=== PATIENT | female | born 1990 | race Caucasian/White ===

== ENCOUNTER 2017-03-26 21:20 | Observation (INO) | payer BC ==
[~2017-03-26] VITALS: Ht 170.2 cm; Wt 64.7 kg
[2017-03-26 21:30] VITALS: RESP 18; O2SAT 100
--- NOTE | 2017-03-26 21:37 | PD ---
HPI Chief Complaint: Cardiac Complaint Time Seen by Provider: 21:31 Travel History International Travel<30 days: No Contact w/Intl Traveler<30days: No Traveled to known affect area: No History of Present Illness HPI 26-year-old female here for evaluation of palpitations and rapid heart rate. The patient reports that she was studying for finals this evening when the symptoms started about 45 minutes ago. She admits to smoking some marijuana tonight. About a week ago she had a similar episode while taking a test. She has not had any fevers, chills, cough, or recent illness. She drank one cup of coffee earlier this morning, otherwise no excessive caffeine use. No recent [id number] medications other than a dose of Excedrin yesterday evening. She denies chest pain, however she states she feels as though her heart is beating through her chest. [facility] Social History Tobacco Use: No Allergies-Medications (Allergen,Severity, Reaction): Coded Allergies: No Known Allergies (Unverified , 03/26/17) Reported Meds & Prescriptions Reported Meds & Active Scripts Active No Active Prescriptions or Reported Medications Review of Systems Except as stated in HPI: all other systems reviewed are Neg Physical Exam Narrative GENERAL: Well-developed, well-nourished, comfortable, no apparent distress. SKIN: Focused skin assessment warm/dry. HEAD: Atraumatic. Normocephalic. EYES: Pupils equal and round. No scleral icterus. No injection or drainage. ENT: No nasal bleeding or discharge. Mucous membranes pink and moist. Bilateral tympanic membrane and external auditory canals are normal. NECK: Trachea midline. No JVD. CARDIOVASCULAR: Tachycardic, rate 130, regular. No murmur. Distal pulses brisk and equal bilaterally. RESPIRATORY: No accessory muscle use. Clear to auscultation. Breath sounds equal bilaterally. GASTROINTESTINAL: Abdomen soft, non-tender, nondistended. MUSCULOSKELETAL: No obvious deformities. No clubbing. No cyanosis. No edema. NEUROLOGICAL: Awake and alert. No obvious cranial nerve deficits. Motor grossly within normal limits. Normal speech. PSYCHIATRIC: Appropriate mood and affect; insight and judgment normal. Data Data Last Documented VS Vital Signs Date Time Temp Pulse Resp B/P (MAP) Pulse Ox O2 Delivery O2 Flow Rate FiO2 03/27/17 00:24 105 18 115/75 (88) 100 Room Air Orders Orders Electrocardiogram (03/26/17:31) Complete Blood Count With Diff (03/26/17:) Comprehensive Metabolic Panel (03/26/17:) Magnesium (Mg) (03/26/17:) Prothrombin Time / Inr (Pt) (03/26/17:31) Act Partial Throm Time (Ptt) (03/26/17:31) Ecg Monitoring (03/26/17:) Iv Access Insert/Monitor (03/26/17:) Oximetry (03/26/17:) Sodium Chloride 0.9% Flush (Ns Flush) (03/26/17 21:45) Sodium Chlor 0.9% 1000 Ml Inj (Ns 1000 M (03/26/17 21:45) Beta Hcg (Quant/Titer) (03/26/17 21:31) Lorazepam (Ativan) (03/26/17 21:45) Free Thyroxine (T4) (03/26/17:) Thyroid Stimulating Hormone (03/26/17:) D-Dimer (03/26/17 22:45) Sodium Chlor 0.9% 1000 Ml Inj (Ns 1000 M (03/26/17 23:00) Ckmb (Isoenzyme) Profile (03/26/17 21:30) Troponin I (03/26/17 21:30) Adenosine Inj (Adenocard Inj) (03/26/17 23:00) Diltiazem Inj (Cardizem Inj) (03/26/17 23:00) Diltiazem Inj (Cardizem Inj) (03/26/17 23:15) CKMB (03/26/17 21:30) CKMB% (03/26/17 21:30) Midazolam Inj (Versed Inj) (03/26/17 23:30) Place In Observation (03/27/17 ) Vital Signs (Adult) Q4H (03/27/17 00:44) Activity Oob With Assistance (03/27/17 00:44) Stage Builder / Telemetry .CONTINUOUS (03/27/17 00:44) Diet Regular Basic (03/27/17 Breakfast) Sodium Chloride 0.9% Flush (Ns Flush) (03/27/17 00:45) Sodium Chloride 0.9% Flush (Ns Flush) (03/27/17 09:00) Acetaminophen (Tylenol) (03/27/17 00:45) Ondansetron Inj (Zofran Inj) (03/27/17 00:45) Naloxone Inj (Narcan Inj) (03/27/17 00:45) Docusate Sodium-Senna (Chrissie-Colace) (03/27/17 09:00) Magnesium Hydroxide Liq (Milk Of Magnesi (03/27/17 00:45) Sennosides (Senokot) (03/27/17 00:45) Bisacodyl Supp (Dulcolax Supp) (03/27/17 00:45) Lactulose Liq (Lactulose Liq) (03/27/17 00:45) Drug Screen, Random Urine (03/27/17 00:53) Admit Order (Ed Use Only) (03/27/17 00:52) Labs Laboratory Tests Test 03/26/17 21:30 White Blood Count 11.4 TH/MM3 Red Blood Count 4.32 MIL/MM3 Hemoglobin 13.7 GM/DL Hematocrit 39.7 % Mean Corpuscular Volume 91.8 FL Mean Corpuscular Hemoglobin 31.7 PG Mean Corpuscular Hemoglobin Concent 34.5 % Red Cell Distribution Width 12.1 % Platelet Count 310 TH/MM3 Mean Platelet Volume 8.8 FL Neutrophils (%) (Auto) 29.6 % Lymphocytes (%) (Auto) 57.7 % Monocytes (%) (Auto) 7.0 % Eosinophils (%) (Auto) 2.3 % Basophils (%) (Auto) 3.4 % Neutrophils # (Auto) 3.4 TH/MM3 Lymphocytes # (Auto) 6.5 TH/MM3 Monocytes # (Auto) 0.8 TH/MM3 Eosinophils # (Auto) 0.3 TH/MM3 Basophils # (Auto) 0.4 TH/MM3 CBC Comment AUTO DIFF Differential Total Cells Counted 100 Neutrophils % (Manual) 45 % Band Neutrophils % 3 % Lymphocytes % 45 % Monocytes % 6 % Eosinophils % 1 % Neutrophils # (Manual) 5.5 TH/MM3 Differential Comment FINAL DIFF MANUAL Platelet Estimate NORMAL Platelet Morphology Comment NORMAL Red Cell Morphology Comment NORMAL Prothrombin Time 11.0 SEC Prothromb Time International Ratio 1.1 RATIO Activated Partial Thromboplast Time 24.4 SEC D-Dimer Quantitative (PE/DVT) LESS THAN 0.19 MG/L FEU Blood Urea Nitrogen 10 MG/DL Creatinine 1.00 MG/DL Random Glucose 215 MG/DL Total Protein 7.4 GM/DL Albumin 4.2 GM/DL Calcium Level 8.3 MG/DL Magnesium Level 1.7 MG/DL Alkaline Phosphatase 76 U/L Aspartate Amino Transf (AST/SGOT) 15 U/L Alanine Aminotransferase (ALT/SGPT) 16 U/L Total Bilirubin 0.7 MG/DL Sodium Level 136 MEQ/L Potassium Level 3.3 MEQ/L Chloride Level 103 MEQ/L Carbon Dioxide Level 21.0 MEQ/L Anion Gap 12 MEQ/L Estimat Glomerular Filtration Rate 68 ML/MIN Total Creatine Kinase 124 U/L Creatine Kinase MB 1.2 NG/ML Troponin I LESS THAN 0.02 NG/ML Free Thyroxine 1.01 NG/DL Thyroid Stimulating Hormone 3rd Gen 2.740 uIU/ML Human Chorionic Gonadotropin, Quant LESS THAN 1 MIU/ML MDM Medical Decision Making Medical Screen Exam Complete: Yes Emergency Medical Condition: Yes Differential Diagnosis Palpitations, SVT, metabolic abnormality, panic attack/anxiety, hyperthyroidism Narrative Course Initial vital signs show heart rate 124, blood pressure 160/86, pulse ox 100% on room air, respiratory rate of 18 breaths per minute. CBC: WBC 11.4, hemoglobin 13.7, hematocrit 39.7, platelets 310, lymphocytes 45%. CMP is remarkable for potassium 3.3, random glucose 215, otherwise unremarkable. The patient reports that she was eating pretzels prior to arrival. Beta hCG is negative. TSH is 2.74. Patient was given a liter of normal saline IV as well as Ativan 1 mg orally. One hour after arrival her heart rate is slightly above 100. She states she feels improved. This is likely a panic attack/anxiety. She has been studying for her test while in the emergency department which is at 8:00 in the morning. 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 Lymphocytosis is nonspecific and the patient reports having some nasal congestion in the last couple of days. Around 11:00 PM and the patient's heart rate went up to 150. EKG was performed at this time and shows possible atrial flutter. The patient was given 10 mg of IV Cardizem 2 with mild improvement in heart rate to the 130s. 11:20 PM: After receiving 20 mg of IV Cardizem, heart rate improved from 150- 130s. On the monitor this appears to be sinus. Patient feels anxious and appears somewhat anxious. There is no more IV Ativan in the hospital. She will be given 2 mg of IV Versed and reassessed. D-dimer was sent and is negative at less than 0.19. O2 saturation in the 100% on room air. She is not short of breath. No hemoptysis. No history of DVT or PE. Although she has been at home sitting for prolonged period of time studying , she does not have any DVT risk factors, and given negative d-dimer, I do not believe that CT pulmonary injury is necessary. Cardiac enzymes are negative. Patient was given 2 mg of IV Versed and feels improved, however heart rate remains elevated at 105 beats per minute. Patient was also given 2 L normal saline IV while in the emergency department. Given her persistent tachycardia, she will be admitted for overnight observation and telemetry monitoring. She is amenable to this plan. Case discussed with hospitalist Dr. Henderson who will admit the patient to her service. Diagnosis Primary Impression: Atrial tachycardia Admitting Information Admitting Physician Requests: Observation Scripts No Active Prescriptions or Reported Meds Cassius Reyes MD Mar 26, 2017 21:37
[2017-03-26 21:40] VITALS: BP 160/86; PULSE 124; RESP 18; O2SAT 100
[2017-03-26] MEDS ORDERED: SODIUM CHLORIDE 0.9% FLUSH 10 ML FLUSH IVF PRN (21:45)
[2017-03-26] MEDS ORDERED: LORazepam 1 MG TAB PO ONE (21:45)
[2017-03-26] MEDS ORDERED: SODIUM CHLOR 0.9% 1000 ML INJ 1,000 ML IV ONE ×2 (21:45→23:00)
[2017-03-26 21:49] LABS: AUTOMATED NEUTROPHIL # 3.4 TH/MM3 (1.8-7.7); BASOPHIL # 0.4 TH/MM3 (0-0.2); BASOPHIL % 3.4 % (0.0-2.0); EOSINOPHIL # 0.3 TH/MM3 (0-0.4); EOSINOPHIL % 2.3 % (0.0-4.0); HEMATOCRIT 39.7 % (35.0-46.0); LYMPH % 57.7 % (9.0-44.0); LYMPHOCYTE # 6.5 TH/MM3 (1.0-4.8); MEAN CELL VOLUME 91.8 FL (80.0-100.0); MEAN CORPUSCULAR HEMOGLOBIN 31.7 PG (27.0-34.0); MEAN CORPUSCULAR HGB CONC 34.5 % (32.0-36.0); NEUT % 29.6 % (16.0-70.0); PLATELET COUNT 310 TH/MM3 (150-450); RED BLOOD COUNT 4.32 MIL/MM3 (4.00-5.30); RED CELL DISTRIBUTION WIDTH 12.1 % (11.6-17.2); WHITE BLOOD COUNT 11.4 TH/MM3 (4.0-11.0)
[2017-03-26 21:54] LABS: HEMO FLAGS AUTO DIFF
[2017-03-26 21:58] LABS: CHLORIDE 103 MEQ/L (98-107); POTASSIUM 3.3 MEQ/L (3.5-5.1); SODIUM (NA) 136 MEQ/L (136-145)
[2017-03-26 22:02] LABS: ANION GAP 12 MEQ/L (5-15); BLOOD UREA NITROGEN 10 MG/DL (7-18); MAGNESIUM 1.7 MG/DL (1.5-2.5)
[2017-03-26 22:05] LABS: ALT (GPT) 16 U/L (10-53); AST (GOT) 15 U/L (15-37); GLOMERULAR FILTRATION RATE 68 ML/MIN (>89)
[2017-03-26 22:06] LABS: APTT (PATIENT) 24.4 SEC (24.3-30.1); INTERNATIONAL NORMALIZED RATIO 1.1 RATIO; TOTAL BILIRUBIN ADULT 0.7 MG/DL (0.2-1.0)
[2017-03-26 22:08] LABS: ALKALINE PHOSPHATASE 76 U/L (45-117)
[2017-03-26 22:10] LABS: BANDS 3 % (0-6); BETA HCG QUANT LESS THAN 1 MIU/ML (0-5); EOSINOPHILS 1 % (0-4); NEUTROPHIL # MANUAL DIFF 5.5 TH/MM3 (1.8-7.7); PLATELET ESTIMATE SMEAR NORMAL (NORMAL); PLATELET MORPHOLOGY NORMAL (NORMAL); POLYS (SEG NEUTROPHILS) 45 % (16-70); SCAN/DIFF FINAL DIFF MANUAL; WBC DIFF SAMPLE 100
[2017-03-26 22:50] VITALS: BP 134/74; PULSE 161; RESP 18; O2SAT 100
[2017-03-26] MEDS ORDERED: ADENOSINE IV SOLN 3 MG/ML 2 ML VIAL IV PUSH ONE (23:00)
[2017-03-26] MEDS ORDERED: DILTIAZEM HCL 25 MG/5 ML VIAL IV ONE ×2 (23:00→23:15)
[2017-03-26 23:03] LABS: CREATINE KINASE 124 U/L (26-192)
[2017-03-26 23:15] LABS: CKMB 1.2 NG/ML (0.5-3.6)
[2017-03-26 23:30] VITALS: BP 116/69; PULSE 120; RESP 18; O2SAT 99
[2017-03-26] MEDS ORDERED: MIDAZOLAM HCL 2 MG/2 ML VIAL IV PUSH ONE (23:30)
[2017-03-26 23:51] LABS: FREE T4 1.01 NG/DL (0.76-1.46)
[2017-03-27 00:24] VITALS: BP 115/75; PULSE 105; RESP 18; O2SAT 100
[2017-03-27] MEDS ORDERED: NALOXONE HCL 0.4 MG/ML AMP IV PUSH PRN (00:45)
[2017-03-27] MEDS ORDERED: SODIUM CHLORIDE 0.9% FLUSH 10 ML FLUSH IV FLUSH PRN (00:45)
[2017-03-27] MEDS ORDERED: BISACODYL 10 MG SUPP RECTAL PRN (00:45)
[2017-03-27] MEDS ORDERED: ACETAMINOPHEN 325 MG TAB PO PRN (00:45)
[2017-03-27] MEDS ORDERED: LACTULOSE SYRUP 20 GM/30 ML CUP PO PRN (00:45)
[2017-03-27] MEDS ORDERED: ONDANSETRON HCL 4 MG/2 ML VIAL IVP PRN (00:45)
[2017-03-27] MEDS ORDERED: SENNOSIDES 8.6 MG TAB PO PRN (00:45)
[2017-03-27] MEDS ORDERED: MAGNESIUM HYDROXIDE SUSP 30 ML CUP PO PRN (00:45)
[2017-03-27 01:00] VITALS: BP 110/69
[2017-03-27 02:45] VITALS: BP 106/65; PULSE 82; RESP 20; TEMP 98.6; O2SAT 98
[2017-03-27 04:00] VITALS: BP 107/61; PULSE 76; RESP 20; TEMP 98.2; O2SAT 99
[2017-03-27 08:00] VITALS: BP 126/74; PULSE 62; RESP 15; O2SAT 99
[2017-03-27] MEDS ORDERED: SODIUM CHLORIDE 0.9% FLUSH 10 ML FLUSH IV FLUSH SCH (09:00)
[2017-03-27] MEDS ORDERED: DOCUSATE SODIUM 50 MG/SENNA 8.6 MG TAB PO SCH (09:00)
[2017-03-27 11:11] LABS: POTASSIUM 4.2 MEQ/L (3.5-5.1)
[2017-03-27 12:00] VITALS: BP 121/63; PULSE 78; RESP 15; TEMP 97.8; O2SAT 98
--- NOTE | 2017-03-27 12:23 | HHI.DCPOC ---
Discharge Care Plan Diagnosis: (1) Atrial tachycardia Goals to Promote Your Health * To prevent worsening of your condition and complications * To maintain your health at the optimal level Directions to Meet Your Goals Take your medications as prescribed Follow your dietary instruction Follow activity as directed Keep your appointments as scheduled Take your immunizations and boosters as scheduled If your symptoms worsen call your PCP, if no PCP go to Urgent Care Center or Emergency Room Smoking is Dangerous to Your Health. Avoid second hand smoke Call the 24-hour hour crisis hotline for domestic abuse at Lyla Rebollar MD Mar 27, 2017 12:23
--- NOTE | 2017-03-27 12:31 | HHI.HP ---
[facility] Non-Staff Admission Diagnosis atrial tachycardia Diagnoses: Chief Complaint: Home palpitations Travel History International Travel<30 Days: No Contact w/Intl Traveler <30 Da: No Traveled to Known Affected Are: No History of Present Illness Patient's 26-year-old female with no past medical history. She had one day of elevated heart rate with associated lightheadedness. She says she is minimal of her finals and has been very anxious as well as dehydrated. She was also found to be hypokalemic after she came to the emergency room. Her potassium was 3.3. Patient notes no previous episodes of cardiac arrhythmias. EKG was done on my review does show atrial tachycardia. The patient had been given Versed, Ativan as well as Cardizem. Her heart rate resolved to normal sinus rhythm and normal rate. Patient says that she is currently on her menses and notes that she gets more anxious and with lots of any increased anxiety during those times a month. Overnight she has been without complaints. She has had no fevers or chills. No other symptoms. She has a primary care to follow up with [place] which she'll be returning to next week. She is advised to return to the hospital should symptoms recur. She will need outpatient Holter monitor Plan of care and discharge plan discussed with patient as well as nursing team Review of Systems Constitutional: DENIES: Fever, Chills, Change in appetite Endocrine: DENIES: Abnorml menstrual pattern, Heat/cold intolerance, Polydipsia , Polyuria, Polyphagia Eyes: DENIES: Blurred vision, Eye pain Ears, nose, mouth, throat: DENIES: Tinnitus, Hearing loss, Vertigo, Nasal discharge, Oral lesions, Throat pain, Hoarseness, Ear Pain, Running Nose, Epistaxis, Sinus Pain, Toothache, Odynophagia Respiratory: DENIES: Apneas, Cough, Snoring, Wheezing, Hemoptysis, Sputum production, Shortness of breath Cardiovascular: COMPLAINS OF: Palpitations, DENIES: Chest pain, Syncope, Dyspnea on Exertion, PND, Lower Extremity Edema, Orthopnea, Claudication Gastrointestinal: DENIES: Abdominal pain, Black stools, Bloody stools, Constipation, Diarrhea, Nausea, Vomiting, Difficulty Swallowing, Anorexia Genitourinary: DENIES: Abnormal vaginal bleeding, Dysmenorrhea, Dyspareunia, Sexual dysfunction, Urinary frequency, Urinary incontinence, Urgency, Hematuria , Dysuria, Nocturia, Vaginal discharge Musculoskeletal: DENIES: Joint pain, Muscle aches, Stiffness, Joint Swelling, Back pain, Neck pain Integumentary: DENIES: Abnormal pigmentation, Pruritus, Rash, Nail changes, Breast masses, Breast skin changes, Nipple discharge Hematologic/lymphatic: DENIES: Bruising, Lymphadenopathy Immunologic/allergic: DENIES: Eczema, Urticaria Neurologic: DENIES: Abnormal gait, Headache, Localized weakness, Paresthesias, Seizures, Speech Problems, Tremor, Poor Balance Psychiatric: DENIES: Anxiety, Confusion, Mood changes, Depression, Hallucinations, Agitation, Suicidal Ideation, Homicidal Ideation, Delusions Except as stated in HPI: all other systems reviewed are Neg Currently on her menses Past Family Social History Past Medical History Denies Past Surgical History Denies Reported Medications Denies Allergies: Coded Allergies: No Known Allergies (Unverified , 03/26/17) Active Ordered Medications Reviewed in the EMR Family History No family history of cardiac arrhythmias Social History Chiropractic student No alcohol or tobacco dependency Physical Exam Vital Signs Vital Signs Date Time Temp Pulse Resp B/P (MAP) Pulse Ox O2 Delivery O2 Flow Rate FiO2 03/27/17 08:00 62 15 126/74 (91) 99 03/27/17 04:00 98.2 76 20 107/61 (76) 99 03/27/17 02:45 98.6 82 20 106/65 (79) 98 03/27/17 01:00 98 110/69 (83) 100 03/27/17 00:24 105 18 115/75 (88) 100 Room Air 03/26/17 23:30 120 18 116/69 (85) 99 Room Air 03/26/17 23:00 18 03/26/17 22:50 161 18 134/74 (94) 100 Room Air 03/26/17 21:44 124 18 03/26/17 21:40 124 18 160/86 (110) 100 03/26/17 21:30 18 100 Room Air Physical Exam GENERAL: This is a well-nourished, well-developed patient, in no apparent distress. SKIN: No rashes, ecchymoses or lesions. Cool and dry. HEAD: Atraumatic. Normocephalic. No temporal or scalp tenderness. EYES: Pupils equal round and reactive. Extraocular motions intact. No scleral icterus. No injection or drainage. ENT: Nose without bleeding, purulent drainage or septal hematoma. Throat without erythema, tonsillar hypertrophy or exudate. Uvula midline. Airway patent. NECK: Trachea midline. No JVD or lymphadenopathy. Supple, nontender, no meningeal signs. CARDIOVASCULAR: Regular rate and rhythm without murmurs, gallops, or rubs. RESPIRATORY: Clear to auscultation. Breath sounds equal bilaterally. No wheezes , rales, or rhonchi. GASTROINTESTINAL: Abdomen soft, non-tender, nondistended. No hepato-splenomegaly , or palpable masses. No guarding. MUSCULOSKELETAL: Extremities without clubbing, cyanosis, or edema. No joint tenderness, effusion, or edema noted. No calf tenderness. Negative Homans sign bilaterally. NEUROLOGICAL: Awake and alert. Cranial nerves II through XII intact. Motor and sensory grossly within normal limits. Five out of 5 muscle strength in all muscle groups. Normal speech. Laboratory Laboratory Tests Test 03/26/17 21:30 03/27/17 01:00 03/27/17 10:20 White Blood Count 11.4 Red Blood Count 4.32 Hemoglobin 13.7 Hematocrit 39.7 Mean Corpuscular Volume 91.8 Mean Corpuscular Hemoglobin 31.7 Mean Corpuscular Hemoglobin Concent 34.5 Red Cell Distribution Width 12.1 Platelet Count 310 Mean Platelet Volume 8.8 Neutrophils (%) (Auto) 29.6 Lymphocytes (%) (Auto) 57.7 Monocytes (%) (Auto) 7.0 Eosinophils (%) (Auto) 2.3 Basophils (%) (Auto) 3.4 Neutrophils # (Auto) 3.4 Lymphocytes # (Auto) 6.5 Monocytes # (Auto) 0.8 Eosinophils # (Auto) 0.3 Basophils # (Auto) 0.4 CBC Comment AUTO DIFF Differential Total Cells Counted 100 Neutrophils % (Manual) 45 Band Neutrophils % 3 Lymphocytes % 45 Monocytes % 6 Eosinophils % 1 Neutrophils # (Manual) 5.5 Differential Comment FINAL DIFF MANUAL Platelet Estimate NORMAL Platelet Morphology Comment NORMAL Red Cell Morphology Comment NORMAL Prothrombin Time 11.0 Prothromb Time International Ratio 1.1 Activated Partial Thromboplast Time 24.4 D-Dimer Quantitative (PE/DVT) LESS THAN 0.19 Blood Urea Nitrogen 10 5 Creatinine 1.00 0.68 Random Glucose 215 86 Total Protein 7.4 Albumin 4.2 Calcium Level 8.3 8.4 Magnesium Level 1.7 2.0 Alkaline Phosphatase 76 Aspartate Amino Transf (AST/SGOT) 15 Alanine Aminotransferase (ALT/SGPT) 16 Total Bilirubin 0.7 Sodium Level 136 143 Potassium Level 3.3 4.2 Chloride Level 103 110 Carbon Dioxide Level 21.0 25.0 Anion Gap 12 8 Estimat Glomerular Filtration Rate 68 106 Total Creatine Kinase 124 Creatine Kinase MB 1.2 Troponin I LESS THAN 0.02 Free Thyroxine 1.01 Thyroid Stimulating Hormone 3rd Gen 2.740 Human Chorionic Gonadotropin, Quant LESS THAN 1 Urine Opiates Screen NEG Urine Barbiturates Screen NEG Urine Amphetamines Screen NEG Urine Benzodiazepines Screen POS Urine Cocaine Screen NEG Urine Cannabinoids Screen POS Result Diagram: 03/26/17212903/27/17 1020 Caprini VTE Risk Assessment Caprini VTE Risk Assessment: No/Low Risk (score <= 1) Caprini Risk Assessment Model Point Value = 1 Point Value = 2 Point Value = 3 Point Value = 5 Age 41-60 Minor surgery BMI > 25 kg/m2 Swollen legs Varicose veins or History of unexplained or recurrent spontaneous Oral contraceptives or hormone replacement Sepsis (< 1 month) Serious lung disease, including pneumonia (< 1 month) Abnormal pulmonary function Acute myocardial infarction Congestive heart failure (< 1 month) History of inflammatory bowel disease Medical patient at bed rest Age 61-74 Arthroscopic surgery Major open surgery (> 45 min) Laparoscopic surgery (> 45 min) Malignancy Confined to bed (> 72 hours) Immobilizing plaster cast Central venous access Age >= 75 History of VTE Family history of VTE Factor V Leiden Prothrombin [id number] Lupus anticoagulant Anticardiolipin antibodies Elevated serum homocysteine Heparin-induced thrombocytopenia Other congenital or acquired thrombophilia Stroke (< 1 month) Elective arthroplasty Hip, pelvis, or leg fracture Acute spinal cord injury (< 1 month) Prophylaxis Regimen Total Risk Factor Score Risk Level Prophylaxis Regimen 0-1 Low Early ambulation 2 Moderate Order ONE of the following: *Sequential Compression Device (SCD) *Heparin 5000 units SQ BID 3-4 Higher Order ONE of the following medications: *Heparin 5000 units SQ TID *Enoxaparin/Lovenox 40 mg SQ daily (WT < 150 kg, CrCl > 30 mL/min) *Enoxaparin/Lovenox 30 mg SQ daily (WT < 150 kg, CrCl > 10-29 mL/min) *Enoxaparin/Lovenox 30 mg SQ BID (WT < 150 kg, CrCl > 30 mL/min) AND/OR *Sequential Compression Device (SCD) 5 or more Highest Order ONE of the following medications: *Heparin 5000 units SQ TID (Preferred with Epidurals) *Enoxaparin/Lovenox 40 mg SQ daily (WT < 150 kg, CrCl > 30 mL/min) *Enoxaparin/Lovenox 30 mg SQ daily (WT < 150 kg, CrCl > 10-29 mL/min) *Enoxaparin/Lovenox 30 mg SQ BID (WT < 150 kg, CrCl > 30 mL/min) AND *Sequential Compression Device (SCD) Assessment and Plan Problem List: (1) Hypokalemia ICD Code: E87.6 - Hypokalemia Plan: resolved (2) Atrial tachycardia ICD Code: I47.1 - Supraventricular tachycardia Status: Acute Plan: resolved We'll need outpatient Holter monitor per primary care physician Assessment and Plan resolved dc home Regular diet Activity as tolerated Code Status full code Discussed Condition With patient Lyla Rebollar MD Mar 27, 2017 12:31
--- NOTE | 2017-03-27 13:43 | EKG ---
Date Performed: 03/26/2017 Time Performed: 21:35:19 PTAGE: 26 years EKG: SINUS TACHYCARDIA POSSIBLE RIGHT VENTRICULAR CONDUCTION DELAY NONSPECIFIC ST & T-WAVE ABNOR MALITY ABNORMAL RHYTHM ECG NO PREVIOUS TRACING DOCTOR: Wendy Momin Interpretating Date/Time 03/27/2017 13:42:09
--- NOTE | 2017-03-27 14:06 | EKG ---
Date Performed: 03/26/2017 Time Performed: 23:02:36 PTAGE: 26 years EKG: SINUS TACHYCARDIA, POSSIBLE ATRIAL FLUTTER POSSIBLE RIGHT VENTRICULAR CONDUCTION DELAY NONS PECIFIC ST & T-WAVE ABNORMALITY ABNORMAL RHYTHM ECG Compared to prior tracing no significant change PREVIOUS TRACING : 03/26/2017 22.50 DOCTOR: Wendy Momin Interpretating Date/Time 03/27/2017 14:04:35
== END 2017-03-27 13:11 | disposition home or self-care (01) ==
LOC: PHED 21:20 → PHEDA 03-27 00:53 → PH3A 03-27 01:59
PROVIDERS: ADMIT Hospitalist; ATTEND Hospitalist
DX: I47.1 Supraventricular tachycardia (principal); E87.6 Hypokalemia; F41.0 Panic disorder [episodic paroxysmal anxiety]; D72.820 Lymphocytosis (symptomatic); R94.31 Abnormal electrocardiogram [ECG] [EKG]; R09.81 Nasal congestion
CPT/HCPCS: 80048; 80053; 80307; 82550; 82552; 83735; 84439; 84443; 84484; 84702; 85007; 85027; 85379; 85610; 85730; 93005; 96361; 96374; 96375; 96376; 99285; G0378; J2250; J7030